=== PATIENT | male | born 1995 | race African-American/Black ===

== ENCOUNTER 2016-12-19 18:33 | Emergency (ER) | payer OTHER ==
[2016-12-19 19:05] VITALS: BP 144/72
[2016-12-19] MEDS ORDERED: Amoxicillin/Clavulanate TAB* 500 MG PO ONE (22:50)
[2016-12-19] MEDS ORDERED: Amoxicillin/Clavulanate TAB* 875 MG PO ONE (22:51)
--- NOTE | 2016-12-19 22:54 | ED ---
Throat Pain/Nasal Congestion - HPI Summary HPI Summary: 21 male presents to ED with complaints of left eye stye that has been ongoing for the past month or longer. Patient was given Augmentin back in beginning of November which helped decrease size and has been applying warm compresses however it has seemed to start getting worse again. Stye has never gone away completely. Denies vision changes/loss, discharge, itchiness or any other complaints at this time. Denies any injury or FB sensation. No other PMHx. Denies any issues with right eye. No pain. - History of Current Complaint Chief Complaint: EDEyeProblem Time Seen by Provider: 12/19/16 22:08 Hx Obtained From: Patient Onset/Duration: Sudden Onset, Lasting Weeks - month, Still Present, Worse Since Severity: Mild - Allergies/Home Medications Allergies/Adverse Reactions: Allergies Allergy/AdvReac Type Severity Reaction Status Date / Time No Known Allergies Allergy Verified 12/19/16 19:05 PMH/Surg Hx/FS Hx/Imm Hx Endocrine/Hematology History: Denies: Hx Diabetes Cardiovascular History: Denies: Hx Hypertension Respiratory History: Denies: Hx Asthma - Surgical History Surgery Procedure, Year, and Place: none - Immunization History Immunizations Up to Date: Yes Infectious Disease History: No Infectious Disease History: Denies: Traveled Outside the [place] in Last 30 Days - Family History Known Family History: Positive: None - Social History Alcohol Use: Occasionally Substance Use Type: Reports: None Smoking Status (MU): Never Smoked Tobacco Review of Systems Constitutional: Negative Positive: Erythema - stye left eye lower lid , Other - stye, swelling left eye ENT: Negative Cardiovascular: Negative Respiratory: Negative Skin: Negative Neurological: Negative All Other Systems Reviewed And Are Negative: Yes Physical Exam Triage Information Reviewed: Yes Vital Signs On Initial Exam: Initial Vitals Temp Pulse Resp BP Pulse Ox 97.9 F 75 16 144/72 99 12/19/16 19:02 12/19/16 19:02 12/19/16 19:02 12/19/16 19:02 12/19/16 19:02 Vital Signs Reviewed: Yes Appearance: Positive: Well-Appearing, No Pain Distress, Well-Nourished Skin: Positive: Warm, Skin Color Reflects Adequate Perfusion, Dry. Negative: Cold, Cyanosis @, Pale, Erythema @ Head/Face: Positive: Normal Head/Face Inspection Eyes: Positive: EOMI, ANDRES, Conjunctiva Clear, Other: - hordeolum versus chalazion noted on left lower lid, external, non tender,no discharge, no vision changes, normal fundoscopic exam on what was able to be visualized ENT: Positive: Normal ENT inspection, Hearing grossly normal, Pharynx normal, TMs normal Neck: Positive: Supple, Nontender, No Lymphadenopathy Respiratory/Lung Sounds: Positive: Clear to Auscultation, Breath Sounds Present. Negative: Decreased Breath Sounds, Rales, Rhonchi, Wheezes Cardiovascular: Positive: Normal, RRR, Pulses are Symmetrical in both Upper and Lower Extremities. Negative: Murmur, Rub Musculoskeletal: Positive: Normal, Strength/ROM Intact Neurological: Positive: Normal, Sensory/Motor Intact, Alert, Oriented to Person Place, Time Psychiatric: Positive: Affect/Mood Appropriate - Wesley Coma Scale Coma Scale Total: 15 Diagnostics - Vital Signs Vital Signs Temp Pulse Resp BP Pulse Ox 12/19/16 19:06 97.9 F 75 16 144/72 99 12/19/16 19:02 97.9 F 75 16 144/72 99 - Laboratory Lab Statement: Any lab studies that have been ordered have been reviewed, and results considered in the medical decision making process. EENT Course/Dx - Course Course Of Treatment: since patient had some relief from augmentin in the past will give another script, encouraged consistent use of warm compresses. follow up with optho for possible surgicial intervention if syte does not resolve. aware of worsening signs and symptoms. no concern for any other emergent etiology at this time. - Differential Diagnoses Differential Diagnoses: Conjunctivitis, Foreign Body, Other - hordeolum, chalazion - Diagnoses Provider Diagnoses: Hordeolum externum (stye) Discharge - Discharge Plan Condition: Stable Disposition: HOME Prescriptions: Amoxicillin/Clavulanate TAB* [Augmentin TAB 875*] 875 mg PO BID #14 tab Patient Education Materials: Stye (ED), Warm Compress or Soak (ED) Referrals: Robert Patel MD [Medical Doctor] - [facility] [place] [facility] [Outside] Additional Instructions: Take prescribed medication as directed. Apply warm compresses as often as possible throughout day. The more you do it the more it may help. Follow up with eye doctor due to length of symptoms and if symptomatic treatment is not helping. New symptoms or worsening symptoms such as vision changes/loss please seek medical attention promptly.
== END 2016-12-19 23:13 | disposition home or self-care (01) ==
LOC: ED 18:33
DX: H00.016 Hordeolum externum left eye, unspecified eyelid (principal)
CPT/HCPCS: 99282; A9270-GY